=== PATIENT | male | born 1950 | race Caucasian/White ===

== ENCOUNTER 2018-01-02 07:30 | Day surgery (SDC) | payer OTHER, MEDICAID ==
[~2018-01-02] VITALS: Ht 137.2 cm; Wt 46.3 kg
[2018-01-02] MEDS ORDERED: SIMETHICONE 40 MG/0.6 ML ML ONE (08:18)
[2018-01-02] MEDS: MIDAZOLAM HCL 5 MG/5 ML VIAL ONE ×3 (09:37→09:44)
[2018-01-02] MEDS: MEPERIDINE HCL/PF 100 MG/ML AMP ONE ×4 (09:37→09:53)
[2018-01-02 13:45] VITALS: BP_SYST 143
== END 2018-01-02 10:45 | disposition home or self-care (01) ==
LOC: SDS 07:30 → SMU 07:34 → SDS 10:45
PROVIDERS: ATTEND Internal Medicine Gastroenterology
DX: Z12.11 Encounter for screening for malignant neoplasm of colon (principal); D12.5 Benign neoplasm of sigmoid colon; K64.8 Other hemorrhoids; K22.70 Barrett's esophagus without dysplasia; F79 Unspecified intellectual disabilities; D64.9 Anemia, unspecified; K21.9 Gastro-esophageal reflux disease without esophagitis; N28.9 Disorder of kidney and ureter, unspecified; Z93.1 Gastrostomy status; Z79.899 Other long term (current) drug therapy; Z79.82 Long term (current) use of aspirin; Z87.11 Personal history of peptic ulcer disease
CPT/HCPCS: 45380; 88305; J2175; J2250